=== PATIENT | female | born 1990 | race Caucasian/White ===

== ENCOUNTER 2024-09-10 23:43 | Inpatient (IN) ==
[2024-09-11 01:48] LABS: Urine Benzodiazepine Screen None Detected (None Detect); Urine Cannabinoids Screen None Detected (None Detect); Urine Opiates Screen None Detected (None Detect)
[2024-09-11] MEDS: Penicillin G Potassium IV 5,000,000 UNITS in NS 0.9% 100 ml BAG 100 ML IVPB ONE (03:12)
[2024-09-11] MEDS: Lactated Ringers 1000 ml BAG 1,000 ML IV ONE (03:35)
[2024-09-11 03:38] LABS: ABS Basophils 0.1 10^3/uL (0.0-0.1); ABS Eosinophils 0.1 10^3/uL (0.0-0.5); ABS Monocytes 0.8 10^3/uL (0.0-0.9); ABS Neutrophils 6.6 10^3/uL (1.5-7.6); Eosinophil % 0.8 %; Hematocrit 34.8 % (35-45); Hemoglobin 11.9 g/dL (11.5-14.3); Lymphocyte % 20.8 %; Mean Corpuscular Hemoglobin 31.1 pg (27-33); Mean Corpuscular Volume 91.4 fL (80-97); Mean Platelet Volume 9.1 fL (7.5-11.2); Platelet Count 243 10^3/uL (150-450); Red Blood Count 3.81 10^6/uL (3.63-4.92); Red Cell Distribution Width 13.2 % (12-17); White Blood Count 9.5 10^3/uL (3.8-11.8)
[2024-09-11] MEDS: Buffered Lidocaine 1% SYRIN 1 ml INTRADERM ONE (08:19)
[2024-09-11] MEDS: Penicillin G Potassium IV 3,000,000 UNITS in NS 0.9% 100 ml BAG 100 ML IVPB SCH ×2 (08:19→19:25)
[2024-09-11] MEDS: miSOPROStol 100 mcg TAB ONE (10:34)
[2024-09-11] MEDS: miSOPROStol 100 mcg TAB SCH (15:05)
[2024-09-11] MEDS ORDERED: Phenylephrine 40 mcg/mL 10mL (400mcg) SYRINGE ONE (20:48)
[2024-09-11] MEDS ORDERED: Lidocaine 1.5% EPI 1:200,000 30 ML SDV ONE (20:48)
[2024-09-11] MEDS ORDERED: OBEPIDURAL (200 ML) 200 ML EPIDURAL ONE (20:48)
[2024-09-11] MEDS: OBEPIDURAL (200 ML) 200 ML EPIDURAL SCH (21:30)
[2024-09-11] MEDS ORDERED: Phenylephrine 40 mcg/mL 10mL (400mcg) SYRINGE IV PUSH PRN (21:31)
[2024-09-11] MEDS ORDERED: Sodium Citrate/Citric Acid LIQ 15 ML UDC PO PRN (21:31)
[2024-09-11] MEDS ORDERED: Lactated Ringers 1000 ml BAG 1,000 ML IV SCH (22:00)
[2024-09-11] MEDS: Phenylephrine 40 mcg/mL 10mL (400mcg) SYRINGE IV PUSH PRN (23:13)
[2024-09-12] MEDS: Oxytocin in LR 20,000 MILLI.UNIT/1,000 ML BAG IV SCH ×2 (07:54→15:33)
[2024-09-12] MEDS: Lidocaine 1% VIAL 10 MG/ML 30 ML VIAL INJ PRN (09:52)
[2024-09-12] MEDS ORDERED: Polyethylene Glycol 3350 17 GM PACKET PO PRN (10:48)
[2024-09-12] MEDS ORDERED: Glycerin ADULT 2.4 gm SUPP PR PRN (10:48)
[2024-09-12] MEDS ORDERED: Lactated Ringers 1000 ml BAG 1,000 ML IV SCH (11:00)
[2024-09-12] MEDS: Witch Hazel PAD JAR TOPICAL PRN (11:05)
[2024-09-12] MEDS: Dibucaine 1% OINT 28.35 GM TUBE PR PRN (11:06)
[2024-09-12] MEDS: Lactated Ringers 1000 ml BAG 1,000 ML IV SCH (15:34)
[2024-09-12] MEDS: Lactated Ringers 1000 ml BAG 1,000 ML IV ONE (15:34)
[2024-09-13 06:59] LABS: ABS Basophils 0.1 10^3/uL (0.0-0.1); ABS Eosinophils 0.1 10^3/uL (0.0-0.5); ABS Lymphocytes 2.1 10^3/uL (1.0-4.8); ABS Monocytes 1.1 10^3/uL (0.0-0.9); ABS Neutrophils 9.1 10^3/uL (1.5-7.6); Eosinophil % 0.9 %; Hematocrit 27.9 % (35-45); Hemoglobin 9.7 g/dL (11.5-14.3); Lymphocyte % 16.7 %; Mean Corpuscular Hemoglobin 31.9 pg (27-33); Mean Corpuscular Hgb Conc 34.8 g/dL (31-36); Mean Corpuscular Volume 91.7 fL (80-97); Mean Platelet Volume 9.1 fL (7.5-11.2); Platelet Count 196 10^3/uL (150-450); Red Blood Count 3.04 10^6/uL (3.63-4.92); Red Cell Distribution Width 13.4 % (12-17); White Blood Count 12.4 10^3/uL (3.8-11.8)
[2024-09-14 08:12] VITALS: BP 123/77
== END 2024-09-14 15:21 | disposition home or self-care (01) | DRG 560 ==
LOC: MCHOB 09-11 00:51
PROVIDERS: ADMIT Midwife; ATTEND Advanced Practice Midwife